=== PATIENT | male | born 1960 | race Caucasian/White ===

== ENCOUNTER 2022-03-03 15:50 | Outpatient (CLI) | payer OTHER, SELFPAY ==
[2022-03-03 13:56] LABS: Albumin* 4.4 g/dL (3.3-5.0); Chloride* 104 mmol/L (96-114)
[2022-03-03 13:57] LABS: Potassium* 4.1 mmol/L (3.6-5.1); Sodium* 141 mmol/L (135-149)
[2022-03-03 13:59] LABS: Cholesterol* 132 mg/dL (90-199)
[2022-03-03 14:00] LABS: Alanine Aminotransferase* 27 U/L (4-50); Alkaline Phosphatase* 91 U/L (40-150); Aspartate Amino Transferase* 38 U/L (12-35); Bilirubin Total* 0.7 mg/dL (0.1-1.5); Blood Urea Nitrogen* 23 mg/dL (7-30); Calcium* 9.6 mg/dL (8.4-10.6); Carbon Dioxide* 27 mmol/L (20-32); Creatinine* 0.8 mg/dL (0.5-1.5); Estimated Glomerular Filt Rate 100 ml/min; Glucose* 115 mg/dL (60-115); HDL Cholesterol* 40 mg/dL (>=40); LDL Cholesterol Calculated 77 mg/dL (<100); Total Protein* 7.1 g/dL (6.0-8.3); Triglycerides* 75 mg/dL (40-149)
== END 2022-03-03 15:51 | disposition home or self-care (01) ==
PROVIDERS: PCP Physician Assistant Medical; Visit Provider Physician Assistant Medical
DX: Z00.00 Encounter for general adult medical examination without abnormal findings (principal); E78.5 Hyperlipidemia, unspecified; I10 Essential (primary) hypertension
CPT/HCPCS: 80053; 80061

== ENCOUNTER 2022-04-25 10:31 | Outpatient (CLI) | payer OTHER, SELFPAY | END 2022-04-25 10:32 | disposition home or self-care (01) | LOC: OP CLINIC 10:33 | PROVIDERS: PCP Physician Assistant Medical; Visit Provider Internal Medicine | DX: K63.5 Polyp of colon (principal); Z86.010 Personal history of colon polyps | CPT/HCPCS: 45380; 88305; J2250; J3010 ==

== ENCOUNTER 2023-04-01 15:10 | Outpatient (CLI) | payer OTHER, SELFPAY | END 2023-04-01 15:11 | disposition home or self-care (01) | PROVIDERS: PCP Physician Assistant Medical; Visit Provider Physician Assistant Medical | DX: Z00.00 Encounter for general adult medical examination without abnormal findings (principal); E78.5 Hyperlipidemia, unspecified; I10 Essential (primary) hypertension; K21.9 Gastro-esophageal reflux disease without esophagitis; Z12.5 Encounter for screening for malignant neoplasm of prostate | CPT/HCPCS: 80053; 80061; 84153 ==

== ENCOUNTER 2024-05-10 08:01 | Outpatient (CLI) | payer BC, SELFPAY | END 2024-05-10 08:02 | disposition home or self-care (01) | LOC: NFLDREF 05-11 00:42 | PROVIDERS: PCP Physician Assistant Medical; Referring Provider Physician Assistant Medical; Visit Provider Physician Assistant Medical | DX: E78.2 Mixed hyperlipidemia (principal); I10 Essential (primary) hypertension; Z13.29 Encounter for screening for other suspected endocrine disorder; Z12.5 Encounter for screening for malignant neoplasm of prostate | CPT/HCPCS: 80053; 80061; 84443; G0103 ==